=== PATIENT | female | born 1985 | race African-American/Black ===

== ENCOUNTER 2020-01-29 18:11 | Emergency (ER) | payer OTHER, SELFPAY ==
--- NOTE | ~2020-01-29 | CT_ITS ---
EXAMINATION: CTA chest PE protocol DATE: 01/29/2020 20:31 INDICATION: Left-sided chest pain and shortness of breath TECHNIQUE: Computed tomography angiography (CTA) of the chest was performed with 100 mL Omnipaque-350 intravenous contrast timed to evaluate the pulmonary arteries. Coronal maximum intensity projection 3D-reconstructions were created by the technologist. The dose-length product (DLP) was 942.35 mGy-cm. Automated exposure control and iterative reconstruction technique were employed. COMPARISON: None. FINDINGS: The pulmonary arteries are well-opacified. No pulmonary embolism is identified. The lungs a re free of acute opacities. There is no pleural effusion or pneumothorax. No pathologically enlarged thoracic lymph nodes are identified. The heart size is normal. There is a small sliding hiatal hernia . Changes of gastric lap band surgery are noted. Mild anterior wedging of the midthoracic spine is li devon physiologic. IMPRESSION: 1. No pulmonary embolism or acute cardiopulmonary abnormality. Reviewed, dictated and finalized at location A.
--- NOTE | 2020-01-29 18:25 | ECG_ITS ---
Measurements Intervals [place] Rate: 93 P: 42 CO: 154 QRS: 3 QRSD: 87 T: 22 QT: 329 QTc: 411 Interpretive Statements SINUS RHYTHM VOLTAGE CRITERIA FOR LVH ST ELEVATION IN ANTERIOR LEADS- PROBABLY EARLY REPOLARIZATION BORDERLINE T WAVE ABNORMALITY- INFERIOR LEADS BASELINE WANDER- II, III BORDERLINE ECG Electronically Signed On 01-30-2020 8:46:36 CDT by Elliot Hayes D.O.
[2020-01-29 18:26] VITALS: BP 139/93; PULSE 92; RESP 15; TEMP 36.8; O2SAT 100
[2020-01-29 18:31] VITALS: PULSE 99
[2020-01-29] MEDS: ASPIRIN 81 MG CHEWABLE TABLET 324 MG PO (18:31)
[2020-01-29 18:32] VITALS: O2SAT 100
--- NOTE | 2020-01-29 18:36 | ED.GENADULT ---
HPI - General Adult General Chief complaint: Chest Pain <Benito Kay PA-C - Last Filed: 01/29/20 19:48> Stated complaint: chest pain <Benito Kay PA-C - Last Filed: 01/29/20 19:48> Time Seen by Provider: 01/29/20 18:28 <Benito Kay PA-C - Last Filed: 01/29/20 19:48> Source: patient <Benito Kay PA-C - Last Filed: 01/29/20 19:48> Mode of arrival: ambulatory <Benito Kay PA-C - Last Filed: 01/29/20 19:48> Limitations: no limitations <Benito Kay PA-C - Last Filed: 01/29/20 19:48> History of Present Illness HPI narrative: Patient is a 34-year-old female who presents with pleuritic left-sided chest pain made worse with deep breathing and exhaling. Patient notes history of PE. Patient notes the pain began last night subsided and recurred today. Patient denies any URI symptoms. On arrival patient notes currently she has no pain and is resting comfortably in the room in no distress. Patient denies injury or trauma. Patient is not taking anything for her symptoms <Benito Kay PA-C - Last Filed: 01/29/20 19:48> Related Data Home medications: Home Medications Medication Instructions Recorded Confirmed albuterol sulfate [Ventolin HFA] INHALATION 01/29/20 insulin lispro [Humalog U-100 01/29/20 Insulin] <Benito Kay PA-C - Last Filed: 01/29/20 19:48> Allergies/adverse reactions: Allergies Allergy/AdvReac Type Severity Reaction Status Date / Time No Known Allergies Allergy Mild Verified 12/24/07 14:20 <Benito Kay PA-C - Last Filed: 01/29/20 19:48> Review of Systems Review of Systems: All systems reviewed & are unremarkable except as noted in HPI and below <Benito Kay PA-C - Last Filed: 01/29/20 19:48> PMFSH Past Medical History Medical History: Medical History (Updated 01/29/20 @ 19:45 by Benito Kay PA-C) Diabetes mellitus type 1 Obesity Pulmonary embolus <Benito Kay PA-C - Last Filed: 01/29/20 19:48> Social History Social History: Social History Smoking status: Never smoker <Benito Kay PA-C - Last Filed: 01/29/20 19:48> Exam Narrative: Exam Narrative: GENERAL: Well-appearing, obese, and in no acute distress. HEAD: Normocephalic, atraumatic. EYES: PERRLA and EOMI. ENT: Nares clear, no rhinorrhea or epistaxis. Mucous membranes moist. CHEST: Clear to auscultation. No respiratory distress. No wheezes rales or rhonchi HEART: Regular rate and rhythm. No murmur heard. Normal peripheral pulses. ABDOMEN: Soft, nontender, nondistended EXTREMITIES: Normal range of motion. No edema. SKIN: Warm, dry, no rash. NEURO: No focal deficits. Alert and oriented x3. PSYCH: Normal mood and affect. <Benito Kay PA-C - Last Filed: 01/29/20 19:48> Course Course Emergency Course: Patient in the room at this time in no distress hemodynamically stable <Benito Kay PA-C - Last Filed: 01/29/20 19:48> second trop negative, low risk, ok for d/c <Junior Mullins MD - Last Filed: 01/29/20 21:36> Vital Signs Vital signs: Vital Signs Temperature 36.8 C 01/29/20 18:26 Pulse Rate 92 01/29/20 18:26 Respiratory Rate 15 01/29/20 18:26 Blood Pressure 139/93 H 01/29/20 18:26 Pulse Oximetry 100 01/29/20 18:26 Temperature 36.8 C 01/29/20 18:26 Pulse Rate 85 01/29/20 21:03 Respiratory Rate 18 01/29/20 21:03 Blood Pressure 103/67 01/29/20 21:03 Pulse Oximetry 99 01/29/20 21:03 <Benito Kay PA-C - Last Filed: 01/29/20 19:48> Vital Signs Temperature 36.8 C 01/29/20 18:26 Pulse Rate 92 01/29/20 18:26 Respiratory Rate 15 01/29/20 18:26 Blood Pressure 139/93 H 01/29/20 18:26 Pulse Oximetry 100 01/29/20 18:26 Temperature 36.8 C 01/29/20 18:26 Pulse Rate 85 01/29/20 21:03 Respiratory Rate 18 01/29/20 21:03 Blood Pressur
[2020-01-29 19:09] LABS: Basophils Absolute Auto 0.1 K/mm3 (0.0-0.1); Basophils Percent Auto 0.7 % (0.2-1.2); Eosinophils Absolute Auto 0.1 K/mm3 (0-0.3); Eosinophils Percent Auto 1.2 % (0-4.4); Hematocrit 40.4 % (37.0-47.0); Hemoglobin 12.9 g/dL (12.0-15.0); Immature Granulocyte Absolute 0.02 K/mm3 (0.00-0.031); Immature Granulocyte Percent A 0.2 % (0-0.5); Lymphocytes Absolute Auto 4.29 K/mm3 (0.9-3.2); Lymphocytes Percent Auto 43.2 % (18.3-44.2); Mean Corpuscular HGB Conc 31.9 g/dl (32-36); Mean Corpuscular Volume 84.7 fl (80-100); Mean Platelet Volume 10.6 fl (7.4-10.4); Monocytes Absolute Auto 0.6 K/mm3 (0.1-0.6); Monocytes Percent Auto 5.7 % (2.6-8.5); Neutrophils Absolute Auto 4.9 K/mm3 (1.3-6.7); Platelet Count Result 305 k/mm3 (150-375); Red Blood Count 4.77 M/mm3 (4.2-5.4); Red Cell Distribution Width 13.1 % (11.5-14.5); White Blood Count 9.9 K/mm3 (4.5-10.0)
[2020-01-29 19:20] LABS: Blood Urea Nitrogen 10 mg/dL (7-17); Calcium 9.2 mg/dL (8.4-10.2); Carbon Dioxide 24 mmol/L (22-30); Chloride 103 mmol/L (98-107); Estimated CRCL calculation 157 ml/min; Estimated Glomerular Filt Rate > 60; Glucose 233 mg/dL (65-105); Potassium 3.8 mmol/L (3.4-5.0); Sodium 137 mmol/L (137-145)
[2020-01-29 19:21] LABS: INR 0.9; Prothrombin Time 12.2 Seconds (11.1-14.7)
[2020-01-29 19:22] LABS: Partial Thromboplastin Time 27.8 SECONDS (22.3-36.8)
[2020-01-29 19:32] LABS: Troponin I < 0.012 ng/mL (0.000-0.034)
[2020-01-29] MEDS: SODIUM CHLORIDE 0.9% IV 1,000 ML 999 ML IV CONT (20:42)
[2020-01-29 21:03] VITALS: BP 103/67; PULSE 85; RESP 18; O2SAT 99
[2020-01-29 21:45] VITALS: BP 100/66; PULSE 86; RESP 18; O2SAT 100
== END 2020-01-29 21:47 | disposition home or self-care (01) ==
PROVIDERS: Emergency Provider Emergency Medicine; PCP Family Medicine
DX: R07.81 Pleurodynia (principal); Z86.711 Personal history of pulmonary embolism; E10.9 Type 1 diabetes mellitus without complications; E66.9 Obesity, unspecified; Z68.36 Body mass index [BMI] 36.0-36.9, adult; R94.31 Abnormal electrocardiogram [ECG] [EKG]; Z79.4 Long term (current) use of insulin
CPT/HCPCS: 36415; 71275; 80048; 81025; 84484; 85025; 85610; 85730; 93005; 96365; 96366; 99284; A9270; J0131; J7030; Q9967